=== PATIENT | female | born 1985 | race Caucasian/White ===

== ENCOUNTER 2019-01-11 03:03 | Emergency (ER) | payer MEDICAID ==
[2019-01-11 03:21] VITALS: BP 135/78; PULSE 94
[2019-01-11] MEDS ORDERED: Ketorolac 60 MG/2 ML SDV IM ONE (04:15)
--- NOTE | 2019-01-11 04:15 | EDM.PDOC ---
ED HPI GENERAL MEDICAL PROBLEM - General Chief Complaint: Upper Extremity Injury/Pain Stated Complaint: LEFT WRIST INJURY Time Seen by Provider: 01/11/19 03:55 Source of Information: Reports: Patient, Old Records History Limitations: Reports: No Limitations - History of Present Illness INITIAL COMMENTS - FREE TEXT/NARRATIVE: 33 yo female here with L wrist and thumb pain. Fell 2 days ago and pain is getting worse. Has been previously dx with carpal tunnel syndrome and has been prescribed wrist splints. Her carpal tunnel condition has not worsened since being given the splints, but she thinks the splints make things worse. Onset: Gradual Onset Date: 01/09/19 Duration: Day(s): (2+), Getting Worse Location: Reports: Upper Extremity, Left Quality: Reports: Ache Severity: Moderate Improves with: Reports: None Worsens with: Reports: None Context: Reports: Trauma, Other (hx of carpal tunnel) Associated Symptoms: Reports: No Other Symptoms Treatments ORCHESTRA DIRECTOR: Reports: Other (see below) (none) Left Wrist Pain Score (Numeric/FACES): 4 - Related Data Allergies Allergy/AdvReac Type Severity Reaction Status Date / Time cefaclor [From Ceclor] Allergy Hives Verified 01/11/19 03:42 Home Meds: Home Meds Montelukast [Singulair] 10 mg PO DAILY 01/14/13 [History] FLUoxetine [PROzac] 20 mg PO DAILY 01/14/16 [History] Fluticasone/Salmeterol [Advair 250-50 Diskus] 1 inh PO BID PRN 01/14/16 [History ] Cetirizine [ZyrTEC] 10 mg PO DAILY 01/11/19 [History] busPIRone [Buspar] 10 mg PO BID 01/11/19 [History] Past Medical History Respiratory History: Reports: Asthma Gastrointestinal History: Reports: GERD 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: Reports: Neurological History: Reports: Other (See Below) Other Neuro History: caffiene headaches Psychiatric History: Reports: Addiction, Anxiety, Depression, PTSD Endocrine/Metabolic History: Reports: Obesity/BMI 30+ - Past Surgical History HEENT Surgical History: Reports: Adenoidectomy Female Surgical History: Reports: Tubal Ligation Musculoskeletal Surgical History: Reports: Carpal Tunnel Social & Family History - Family History Family Medical History: Unobtainable - Tobacco Use Smoking Status *Q: Current Every Day Smoker Years of Tobacco use: 12 Packs/Tins Daily: 0.7 - Caffeine Use Caffeine Use: Reports: Soda - Recreational Drug Use Recreational Drug Use: Yes Recreational Drug Type: Reports: Marijuana/Hashish Recreational Drug Use Frequency: Rarely Review of Systems - Review of Systems Review Of Systems: ROS reveals no pertinent complaints other than HPI. Constitutional: Reports: No Symptoms Musculoskeletal: Reports: Hand Pain (Left), Joint Pain (L wrist) Skin: Reports: No Symptoms Neurological: Reports: No Symptoms ED EXAM, GENERAL - Physical Exam Exam: See Below Exam Limited By: No Limitations General Appearance: Alert, WD/WN, No Apparent Distress Extremities: Normal Inspection, Normal Range of Motion, Non-Tender, No Pedal Edema Neurological: Alert, Oriented, CN II-XII Intact, Normal Cognition, No Motor/ Sensory Deficits, Other (good pinch strength) Psychiatric: Normal Affect, Normal Mood Skin Exam: Warm, Dry, Intact, Normal Color, No Rash Course - Vital Signs Last Recorded V/S: Last Vital Signs Temp 35.8 C 01/11/19 03:23 Pulse 94 01/11/19 03:19 Resp 16 01/11/19 03:19 BP 135/78 01/11/19 03:19 Pulse Ox 96 01/11/19 03:19 - Orders/Labs/Meds Meds: Medications Discontinued Medications Generic Name Dose Route Start Last Admin Trade Name Neil PRN Reason Stop Dose Admin Ketorolac Tromethamine 60 mg 01/11/19 04:15 01/11/19 04:18 Toradol IM 01/11/19 04:16 60 mg ONETIME ONE Administration - Radiology Interpretation Free Text/Narrative:: L wrist X-ray-neg Departure - Departure Time of Disposition: 04:42 Disposition: Home, Self-Care 01 Condition: Fair Clinical Impression: Left wrist pain - Discharge Information *PRESCRIPTION DRUG MONITORING PROGRAM REVIEWED*: No *COPY OF PRESCRIPTION DRUG MONITORING REPORT IN PATIENT MAXIM: No Instructions: Wrist Pain, Adult Referrals: Tatiana Lowery PA [Primary Care Provider] - Forms: ED Department Discharge Additional Instructions: Take acetaminophen up to 1000 mg every 6 hrs as needed for pain relief. Try naproxen sodium 2 every 8 [address] with food in place of the ibuprofen to see if this gives you better relief, may start this after 10 am today. Follow up with your primary as soon as you can for this. Wear your splints in the meantime.
--- NOTE | 2019-01-11 04:29 | CRLCR ---
Indication: Injury and pain Technique: Left wrist 4 view Comparison: None Findings: Bones: Alignment is normal. No fractures or bone lesions. Joint spaces: Unremarkable. Soft tissues: Unremarkable. Impression: Normal left wrist. Dictated by Ted Henriquez MD @ Jan 11 2019 4:27AM Signed by Dr. Ted Henriquez @ Jan 11 2019 4:28AM
== END 2019-01-11 04:52 | disposition home or self-care (01) ==
LOC: JP.ED 03:03
DX: M25.532 Pain in left wrist (principal); M79.645 Pain in left finger(s); J45.909 Unspecified asthma, uncomplicated; E66.9 Obesity, unspecified; F41.9 Anxiety disorder, unspecified; F32.9 Major depressive disorder, single episode, unspecified; F17.210 Nicotine dependence, cigarettes, uncomplicated; Z68.37 Body mass index [BMI] 37.0-37.9, adult; Z79.899 Other long term (current) drug therapy; Z88.1 Allergy status to other antibiotic agents; W19.XXXA Unspecified fall, initial encounter
CPT/HCPCS: 73110; 96372; 99283; J1885

== ENCOUNTER 2019-03-16 04:41 | Emergency (ER) | payer MEDICAID ==
[2019-03-16 04:52] VITALS: BP 149/97; PULSE 77
[2019-03-16] MEDS ORDERED: Lactated Ringers 1,000 ML IV SCH (05:15)
[2019-03-16] MEDS ORDERED: Ketorolac 30 MG/ML SDV IVPUSH ONE (05:18)
--- NOTE | 2019-03-16 05:20 | EDM.PDOC ---
ED HPI GENERAL MEDICAL PROBLEM - General Chief Complaint: Flank Pain Stated Complaint: MEDICAL VIA [facility] Time Seen by Provider: 03/16/19 05:05 Source of Information: Reports: Patient, Family, RN Notes Reviewed History Limitations: Reports: No Limitations - History of Present Illness INITIAL COMMENTS - FREE TEXT/NARRATIVE: 33-year-old female presents emergency department today with complaint of abdominal pain, she states the pain started approximately 4 hours prior rates pain 10 out of 10 but does wax and wane. Has no nausea no vomiting no shortness of breath or chest pain no problems with bowel movements. States the pain initially started in the flank area but now has migrated down the right lower quadrant. 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: Reports: Musculoskeletal History: Reports: Other (See Below) Other Musculoskeletal History: carpal tunnel Neurological History: Reports: Other (See Below) Other Neuro History: caffiene headaches Psychiatric History: Reports: Addiction, Anxiety, Depression, PTSD Endocrine/Metabolic History: Reports: Obesity/BMI 30+ - Past Surgical History HEENT Surgical History: Reports: Adenoidectomy Respiratory Surgical History: Reports: None GI Surgical History: Reports: None Female Surgical History: Reports: Tubal Ligation Endocrine Surgical History: Reports: None Neurological Surgical History: Reports: None Dermatological Surgical History: Reports: None Social & Family History - Family History Family Medical History: Unobtainable - Tobacco Use Smoking Status *Q: Current Every Day Smoker Years of Tobacco use: 16 Packs/Tins Daily: 1 - Caffeine Use Caffeine Use: Reports: Soda Caffeine Use Comment: 5 [place] per day - Recreational Drug Use Recreational Drug Use: No ED ROS GENERAL - Review of Systems Review Of Systems: See Below Constitutional: Denies: Fever, Chills HEENT: Reports: No Symptoms Respiratory: Reports: No Symptoms Cardiovascular: Reports: No Symptoms GI/Abdominal: Reports: Abdominal Pain. Denies: Constipation, Diarrhea, Nausea, Vomiting : Reports: No Symptoms Musculoskeletal: Reports: No Symptoms Skin: Reports: No Symptoms ED EXAM, GI/ABD - Physical Exam Exam: See Below Exam Limited By: No Limitations General Appearance: Alert, WD/WN, No Apparent Distress Respiratory/Chest: No Respiratory Distress, Lungs Clear, Normal Breath Sounds, No Accessory Muscle Use, Chest Non-Tender Cardiovascular: Regular Rate, Rhythm, No Murmur GI/Abdominal Exam: Soft, Tender (Tender right lower quadrant), Other (Psoas sign obturator sign heeltap sign all negative) Back Exam: Normal Inspection, Full Range of Motion. No: CVA Tenderness (R), CVA Tenderness (L) Course - Vital Signs Last Recorded V/S: Last Vital Signs Temp 96.9 F 03/16/19 04:49 Pulse 77 03/16/19 04:49 Resp 16 03/16/19 04:49 BP 149/97 H 03/16/19 04:49 Pulse Ox 98 03/16/19 04:49 - Orders/Labs/Meds Orders: Active Orders 24 hr Category Date Time Status Peripheral IV Care [RC] . DIRECTED Care 03/16/19 05:14 Active Iopamidol [Isovue-300 (61%)] Med 03/16/19 05:30 Active 100 ml IV . DIRECTED Lactated Ringers [Ringers, Lactated] 1,000 ml Med 03/16/19 05:15 Active IV ASDIRECTED Sodium Chloride 0.9% [Normal Saline] 100 ml Med 03/16/19 05:30 Active IV ASDIRECTED Sodium Chloride 0.9% [Saline Flush] Med 03/16/19 05:13 Active 10 ml FLUSH ASDIRECTED PRN Peripheral IV Insertion Adult [OM.PC] Urgent Oth 03/16/19 05:13 Ordered Medication Orders Lactated Ringer's (Ringers, Lactated) 1,000 mls @ 999 mls/hr IV ASDIRECTED ELLIE Last Admin: 03/16/19 05:27 Dose: 999 mls/hr Sodium Chloride (Normal Saline) 100 mls @ 3 mls/sec IV ASDIRECTED ELLIE Last Admin: 03/16/19 06:12 Dose: 3 mls/sec Iopamidol (Isovue-300 (61%)) 100 ml IV . DIRECTED ELLIE Last Admin: 03/16/19 06:12 Dose: 100 ml Sodium Chloride (Saline Flush) 10 ml FLUSH ASDIRECTED PRN PRN Reason: Keep Vein Open Last Admin: 03/16/19 06:12 Dose: 10 ml Admin: 03/16/19 05:31 Dose: 10 ml Labs: Laboratory Tests 03/16/19 03/16/19 03/16/19 Range/Units 05:15 05:15 05:15 WBC 11.1 H (4.5-11.0) K/uL RBC 4.70 (3.30-5.50) M/uL Hgb 13.3 (12.0-15.0) g/dL Hct 41.2 (36.0-48.0) % MCV 88 (80-98) fL MCH 28 (27-31) pg MCHC 32 (32-36) % Plt Count 331 (150-400) K/uL Neut % (Auto) 64 (36-66) % Lymph % (Auto) 24 (24-44) % [place] % (Auto) 8 H (2-6) % Eos % (Auto) 3 (2-4) % Baso % (Auto) 0 (0-1) % Sodium 140 (140-148) mmol/L Potassium 4.0 (3.6-5.2) mmol/L Chloride 105 (100-108) mmol/L Carbon Dioxide 25 (21-32) mmol/L Anion Gap 9.7 (5.0-14.0) mmol/L BUN 9 (7-18) mg/dL Creatinine 0.9 (0.6-1.0) mg/dL Est Cr Clr Drug Dosing 83.23 mL/min Estimated GFR (MDRD) > 60 (>60) Glucose 98 (74-106) mg/dL Lactic Acid 1.4 (0.4-2.0) mmol/L Calcium 8.7 (8.5-10.1) mg/dL Total Bilirubin 0.1 L D (0.2-1.0) mg/dL AST 13 L (15-37) U/L ALT 22 (12-78) U/L Alkaline Phosphatase 91 (46-116) U/L Total Protein 7.1 (6.4-8.2) g/dL Albumin 3.2 L (3.4-5.0) g/dL Globulin 3.9 H (2.3-3.5) g/dL Albumin/Globulin Ratio 0.8 L (1.2-2.2) Lipase 70 L (73-393) U/L HCG, Qual Urine Color (YELLOW) Urine Appearance (CLEAR) Urine pH (5.0-8.0) Ur Specific [place] (1.008-1.030) Urine Protein (NEGATIVE) mg/dL Urine Glucose (UA) (NEGATIVE) mg/dL Urine Ketones (NEGATIVE) mg/dL Urine Occult Blood (NEGATIVE) Urine Nitrite (NEGATIVE) Urine Bilirubin (NEGATIVE) Urine Urobilinogen (0.2-1.0) EU/dL Ur Leukocyte Esterase (NEGATIVE) Urine RBC (0-5) Urine WBC (0-5) Ur Epithelial Cells Amorphous Sediment Urine Bacteria Urine Mucus 03/16/19 03/16/19 Range/Units 05:43 06:23 WBC (4.5-11.0) K/uL RBC (3.30-5.50) M/uL Hgb (12.0-15.0) g/dL Hct (36.0-48.0) % MCV (80-98) fL MCH (27-31) pg MCHC (32-36) % Plt Count (150-400) K/uL Neut % (Auto) (36-66) % Lymph % (Auto) (24-44) % [place] % (Auto) (2-6) % Eos % (Auto) (2-4) % Baso % (Auto) (0-1) % Sodium (140-148) mmol/L Potassium (3.6-5.2) mmol/L Chloride (100-108) mmol/L Carbon Dioxide (21-32) mmol/L Anion Gap (5.0-14.0) mmol/L BUN (7-18) mg/dL Creatinine (0.6-1.0) mg/dL Est Cr Clr Drug Dosing mL/min Estimated GFR (MDRD) (>60) Glucose (74-106) mg/dL Lactic Acid (0.4-2.0) mmol/L Calcium (8.5-10.1) mg/dL Total Bilirubin (0.2-1.0) mg/dL AST (15-37) U/L ALT (12-78) U/L Alkaline Phosphatase (46-116) U/L Total Protein (6.4-8.2) g/dL Albumin (3.4-5.0) g/dL Globulin (2.3-3.5) g/dL Albumin/Globulin Ratio (1.2-2.2) Lipase (73-393) U/L HCG, Qual Negative Urine Color Yellow (YELLOW) Urine Appearance Cloudy A (CLEAR) Urine pH 7.0 (5.0-8.0) Ur Specific [place] 1.020 (1.008-1.030) Urine Protein Negative (NEGATIVE) mg/dL Urine Glucose (UA) Negative (NEGATIVE) mg/dL Urine Ketones Negative (NEGATIVE) mg/dL Urine Occult Blood Large H (NEGATIVE) Urine Nitrite Negative (NEGATIVE) Urine Bilirubin Negative (NEGATIVE) Urine Urobilinogen 0.2 (0.2-1.0) EU/dL Ur Leukocyte Esterase Negative (NEGATIVE) Urine RBC >100 H (0-5) Urine WBC 0-5 (0-5) Ur Epithelial Cells Many Amorphous Sediment Not seen Urine Bacteria Moderate Urine Mucus Few Meds: Medications Generic Name Dose Route Start Last Admin Trade Name Freq PRN Reason Stop Dose Admin Lactated Ringer's 1,000 mls @ 999 mls/hr 03/16/19 05:15 03/16/19 05:27 Ringers, Lactated IV 999 mls/hr ASDIRECTED ELLIE Administration Sodium Chloride 100 mls @ 3 mls/sec 03/16/19 05:30 03/16/19 06:12 Normal Saline IV 3 mls/sec ASDIRECTED ELLIE Administration Iopamidol 100 ml 03/16/19 05:30 03/16/19 06:12 Isovue-300 (61%) IV 100 ml . DIRECTED ELLIE Administration Sodium Chloride 10 ml 03/16/19 05:13 03/16/19 06:12 Saline Flush FLUSH 10 ml ASDIRECTED PRN Administration Keep Vein Open Discontinued Medications Generic Name Dose Route Start Last Admin Trade Name Freq PRN Reason Stop Dose Admin Ketorolac Tromethamine 30 mg 03/16/19 05:18 03/16/19 05:28 Toradol IVPUSH 03/16/19 05:19 30 mg ONETIME ONE Administration Sodium Chloride 10 ml 03/16/19 05:21 03/16/19 05:32 Saline Flush FLUSH 03/16/19 05:22 10 ml ONETIME ONE Administration Departure - Departure Time of Disposition: 06:53 Disposition: Home, Self-Care 01 Condition: Fair Clinical Impression: Nephrolithiasis - Discharge Information Instructions: Kidney Stones Referrals: Tatiana Lowery PA [Primary Care Provider] - Forms: ED Department Discharge Additional Instructions: Continue to use the ketorolac as needed for pain control, push fluids, please followup with your primary care provider in 3-5 days if not better, please call return to the emergency department with worsening of symptoms. Sepsis Event Note - Evaluation Sepsis Screening Result: No Definite Risk - Focused Exam Vital Signs: Vital Signs Temp Pulse Resp BP Pulse Ox 03/16/19 04:49 96.9 F 77 16 149/97 H 98 Date Exam was Performed: 03/16/19 Time Exam was Performed: 06:52 - My Orders Last 24 Hours: My Active Orders 03/16/19 05:13 Sodium Chloride 0.9% [Saline Flush] 10 ml FLUSH ASDIRECTED PRN Peripheral IV Insertion Adult [OM.PC] Urgent 03/16/19 05:14 Peripheral IV Care [RC] . DIRECTED 03/16/19 05:15 Lactated Ringers [Ringers, Lactated] 1,000 ml IV ASDIRECTED 03/16/19 05:30 Iopamidol [Isovue-300 (61%)] 100 ml IV . DIRECTED Sodium Chloride 0.9% [Normal Saline] 100 ml IV ASDIRECTED - Assessment/Plan Last 24 Hours: My Active Orders 03/16/19 05:13 Sodium Chloride 0.9% [Saline Flush] 10 ml FLUSH ASDIRECTED PRN Peripheral IV Insertion Adult [OM.PC] Urgent 03/16/19 05:14 Peripheral IV Care [RC] . DIRECTED 03/16/19 05:15 Lactated Ringers [Ringers, Lactated] 1,000 ml IV ASDIRECTED 03/16/19 05:30 Iopamidol [Isovue-300 (61%)] 100 ml IV . DIRECTED Sodium Chloride 0.9% [Normal Saline] 100 ml IV ASDIRECTED Plan: Assessment Acuity = acute Site and laterality = right-sided nephrolithiasis Etiology = unknown Manifestations = flank pain Location of injury = Home Lab values = CBC, CMP, urinalysis unremarkable CT scan describes the stone above Plan She had good relief with the Toradol provided prescription written for Toradol 10 mg 1 tab p.o. 3 times daily PRN total #20 follow-up primary care 3 to 5 days if not better This note was dictated using [employer] voice recognition software please call with any questions on syntax or grammar.
[2019-03-16] MEDS ORDERED: Sodium Chloride 0.9% 10 ML Syringe FLUSH ONE (05:21)
[2019-03-16] MEDS ORDERED: Iopamidol 612 MG/ML 100 ML Bottle IV SCH (05:30)
[2019-03-16] MEDS ORDERED: Sodium Chloride 0.9% 100 ML IV SCH (05:30)
[2019-03-16] MEDS: Sodium Chloride 0.9% 10 ML Syringe FLUSH PRN ×2 (05:31→06:12)
--- NOTE | 2019-03-16 06:38 | CRLCT ---
INDICATION: rlq pain INDICATION: Right lower quadrant abdominal pain. TECHNIQUE: CT abdomen and pelvis acquired with IV contrast. 100 cc of Isovue-300 IV. Coronal/sagittal reconstruction images. COMPARISON: None FINDINGS: Lower chest: There is no pleural or pericardial effusion. The heart size is normal. No basilar pneumothorax or acute airspace disease. Liver: Unremarkable. Spleen: Unremarkable. Pancreas: Unremarkable. Gallbladder and bile ducts: Unremarkable. Kidneys: There is right hydronephrosis, hydroureter, secondary to a 4 millimeter stone in the right proximal ureter, image 59, series 3. This is seen at the level of L4. There is fat stranding surrounding the right ureter at this location, and mild enhancement of the urothelium, along with a delayed nephrogram. Adrenal glands: Unremarkable. GI tract: Unremarkable. Appendix is normal in caliber, with no inflammatory changes, seen best on image 98, series 2. Vascular structures: Negative. No sign of aneurysm. Lymph nodes: Nonenlarged retroperitoneal and pelvic lymph nodes. None meet size criteria to be considered enlarged. Miscellaneous: Unremarkable. No free air or significant free fluid. Pelvic Organs: There is a 4.6 cm cystic lesion in the left adnexa, which is most likely an antral Varian cyst. There is no solid component identified on CT, and no suspicious features. Bones: Unremarkable for age. IMPRESSION: 1. 4 millimeter stone in the right proximal ureter, with hydronephrosis, proximal hydroureter, delayed nephrogram, and periureteric edema. 2. Normal caliber appendix. 3. No abdominal or pelvic lymphadenopathy. Dictated by Rasta Henry MD @ 03/16/2019 6:36:44 AM Please note that all CT scans at this facility use dose modulation, iterative reconstruction, and/or weight-based dosing when appropriate to reduce radiation dose to as low as reasonably achievable. Dictated by: Rasta Henry MD @ 03/16/2019 06:36:55 (Electronically Signed)
== END 2019-03-16 07:23 | disposition home or self-care (01) ==
LOC: JP.ED 04:41
DX: N13.2 Hydronephrosis with renal and ureteral calculous obstruction (principal); F17.210 Nicotine dependence, cigarettes, uncomplicated; Z88.1 Allergy status to other antibiotic agents; J45.909 Unspecified asthma, uncomplicated
CPT/HCPCS: 36415; 74177; 80053; 81001; 83605; 83690; 84703; 85025; 96361; 96374; 99285; J1885; J7050; J7120; Q9967

== ENCOUNTER 2021-06-10 17:48 | Emergency (ER) | payer MEDICAID ==
[2021-06-10] MEDS ORDERED: methylPREDNISolone Sodium Succinate 125 MG/2 ML SDV IM ONE (17:50)
[2021-06-10 18:25] VITALS: BP 153/85; PULSE 89
[2021-06-10] MEDS ORDERED: Cetirizine 10 MG Tab PO ONE (18:41)
== END 2021-06-10 19:21 | disposition other institution (70) ==
LOC: JP.ED 17:48
DX: J45.21 Mild intermittent asthma with (acute) exacerbation (principal); J30.2 Other seasonal allergic rhinitis; E66.9 Obesity, unspecified; Z88.1 Allergy status to other antibiotic agents; Z72.0 Tobacco use; Z68.38 Body mass index [BMI] 38.0-38.9, adult
CPT/HCPCS: 36415; 71046; 71046-26; 80053; 85025; 86140; 96372; 99284; 99285-25; A9270-GY; J2930

== ENCOUNTER 2024-08-01 11:37 | Emergency (ER) | payer MEDICAID | END 2024-08-01 13:30 | disposition left against medical advice (07) | LOC: JP.ED 11:37 | DX: Z53.21 Procedure and treatment not carried out due to patient leaving prior to being seen by health care provider (principal) ==

== ENCOUNTER 2024-08-01 20:54 | Emergency (ER) | payer MEDICAID ==
[2024-08-01 21:01] VITALS: BP 128/70; PULSE 73
[2024-08-01] MEDS: hydrOXYzine HCl 25 MG Tab PO ONE (21:29)
== END 2024-08-01 22:01 | disposition home or self-care (01) ==
LOC: JP.ED 20:54
DX: L29.9 Pruritus, unspecified (principal); I10 Essential (primary) hypertension; E66.9 Obesity, unspecified; F17.210 Nicotine dependence, cigarettes, uncomplicated; Z79.899 Other long term (current) drug therapy; Z88.1 Allergy status to other antibiotic agents; Z68.39 Body mass index [BMI] 39.0-39.9, adult
CPT/HCPCS: 99281; A9270